=== PATIENT | female | born 1990 | race African-American/Black ===

== ENCOUNTER → 2016-05-08 | Emergency (ER) | payer OTHER ==
[~2016-05-08] MED LIST: METOCLOPRAMIDE HCL INJECTION 10 MG/2 ML VIAL IVPUSH ONE; METOCLOPRAMIDE HCL INJECTION 10 MG/2 ML VIAL ONE; SODIUM CHLORIDE 1,000 ML IV STA
[2016-05-08 21:16] VITALS: BP 137/87; PULSE 110; TEMP 100; BMI 51.7
--- NOTE | 2016-05-08 21:53 | PDOC ---
History of Present Illness - General Chief Complaint: Nausea/Vomiting Stated Complaint: NAUSEA,VOMITING,DIARRHEA,HEADACHE Time Seen by Provider: 05/08/16 21:18 History Source: Patient Exam Limitations: No Limitations - History of Present Illness Travel History: No Past History - Travel Traveled outside of the country in the last 30 days: No Close contact w/someone who was outside of country & ill: No - Past Medical History Allergies/Adverse Reactions: Allergies Allergy/AdvReac Type Severity Reaction Status Date / Time No Known Allergies Allergy Verified 05/08/16 21:13 Home Medications: Ambulatory Orders Metformin HCl [Glucophage] 500 mg PO BID 05/08/16 Diabetes: Yes Seizures: Yes (nocturnal) Other medical history: eczema, arthritis - Psycho/Social/Smoking Cessation Hx Anxiety: No Suicidal Ideation: No Smoking History: Never smoked Have you smoked in the past 12 months: Yes Number of Cigarettes Smoked Daily: 1 Hx Alcohol Use: No Drug/Substance Use Hx: No Substance Use Type: None Abd/GI Specific PMHX - Complaint Specific PMHX Colitis: No Diverticulitis: No Gall Bladder Disease: No GERD: No Review of Systems - Review of Systems Able to Perform ROS?: Yes Comments:: 05/08/16 23:23 CONSTITUTIONAL: Absent: fever, chills, diaphoresis, generalized weakness, malaise, loss of appetite HEENT: Absent: rhinorrhea, nasal congestion, throat pain, throat swelling, difficulty swallowing, mouth swelling, ear pain, eye pain, visual Changes CARDIOVASCULAR: Absent: chest pain, loss of consciousness, palpitations, irregular heart rate, peripheral edema RESPIRATORY: Absent: cough, shortness of breath, dyspnea with exertion, orthopnea, wheezing, stridor, hemoptysis GASTROINTESTINAL: +nausea, vomiting, diarrhea, (non bilious/non bloody) Absent: abdominal pain, abdominal distension, constipation, melena, hematochezia GENITOURINARY: Absent: dysuria, frequency, urgency, hesitancy, hematuria, flank pain, genital pain MUSCULOSKELETAL: Absent: myalgia, arthralgia, joint swelling SKIN: Absent: rash, itching, pallor HEMATOLOGIC/IMMUNOLOGIC: Absent: easy bleeding, easy bruising, lymphadenopathy, frequent infections ENDOCRINE: Absent: unexplained weight gain, unexplained weight loss, heat intolerance, cold intolerance NEUROLOGIC: Absent: headache, focal weakness or paresthesias, dizziness, unsteady gait, seizure, mental status changes, bladder or bowel incontinence PSYCHIATRIC: Absent: anxiety, depression, suicidal or homicidal ideation, hallucinations. Is the patient limited Cong[place] proficient: No *Physical Exam - Vital Signs Last Vital Signs Temp Pulse Resp BP Pulse Ox 100 F H 110 H 18 137/87 98 05/08/16 21:14 05/08/16 21:14 05/08/16 21:14 05/08/16 21:14 05/08/16 21:14 - Physical Exam Comments: 05/08/16 23:23 GENERAL: Well developed, well nourished. Awake and alert. No acute distress. HEENT: Normocephalic, atraumatic. PERRLA, EOMI. No conjunctival pallor. Sclera are non- icteric. Moist mucous membranes. Oropharynx is clear. NECK: Supple. Full ROM. No JVD. Carotid pulses 2+ and symmetric, without bruits. No thyromegaly. No lymphadenopathy. CARDIOVASCULAR: Regular rate and rhythm. No murmurs, rubs, or gallops. Distal pulses are 2+ and symmetric. PULMONARY: No evidence of respiratory distress. Lungs clear to auscultation bilaterally. No wheezing, rales or rhonchi. ABDOMINAL: Soft. Non-tender. Non-distended. No rebound or guarding. No organomegaly. Normoactive bowel sounds. MUSCULOSKELETAL Normal range of motion at all joints. No bony deformities or tenderness. No CVA tenderness. EXTREMITIES: No cyanosis. No clubbing. No edema. No calf tenderness. SKIN: Warm and dry. Normal capillary refill. No rashes. No jaundice. NEUROLOGICAL: Alert, awake, appropriate. Cranial nerves 2-12 intact. No deficits to light touch and temperature in face, upper extremities and lower extremities. No motor deficits in the in face, upper extremities and lower extremities. Normoreflexic in the upper and lower extremities. Normal speech. Toes are down- going bilaterally. Gait is normal without ataxia. PSYCHIATRIC: Cooperative. Good eye contact. Appropriate mood and affect. ED Treatment Course - LABORATORY CBC & Chemistry Diagram: 05/08/16 22:00 05/08/16 22:00 Progress Note - Progress Note Progress Note: 25-year-old female presents to the emergency department complaining of nausea/ vomiting and diarrhea as of last evening. Patient states she vomited once last evening and had 3 bouts of diarrhea today that were nonbilious and nonbloody. Patient states she had a hamburger that wasn't cooked through yesterday and felt nauseous. She denies any abdominal pains, urinary symptoms, chest pain, shortness of breath, fever/chills. *DC/Admit/Observation/Transfer Diagnosis at time of Disposition: Nausea & vomiting Qualifiers: Vomiting type: unspecified Vomiting Intractability: non-intractable Qualified Code(s): R11.2 - Nausea with vomiting, unspecified - Discharge Dispostion Disposition: HOME Condition at time of disposition: Fair - Referrals Referrals: Yovanny Farris MD [Primary Care Provider] - - Patient Instructions Printed Discharge Instructions: DI for Nausea -- Adult, DI for Vomiting -- Adult Additional Instructions: Rest Increase fluids Follow up with your physician Return to the ER for severe/persistent/worsening symptoms
[2016-05-08 22:13] LABS: BASOPHIL 0.5 % (0-2.0); EOSINOPHIL 0.8 % (0-4.5); MCHC 31.3 g/dl (32.0-36.0); MEAN CELL VOLUME 73.4 fl (80-96); MEAN PLT VOLUME 7.9 fl (7.5-11.1); NEUTROPHILS 72.4 % (42.8-82.8); PLATELET COUNT 349 K/MM3 (134-434); RDW 15.9 % (11.6-15.6)
[2016-05-08 22:38] LABS: ALBUMIN 3.6 g/dl (3.4-5.0); ANION GAP 7 (8-16); CALCIUM 8.6 mg/dL (8.5-10.1); CO2 28 mmol/L (21-32); CREATININE 0.7 mg/dL (0.55-1.02); GLUCOSE,RANDOM 140 mg/dL (74-106); SGOT/AST 33 U/L (15-37); SGPT/ALT 56 U/L (12-78); TOT PROT 7.6 g/dl (6.4-8.2)
[2016-05-08 22:42] LABS: ALK PHOS 103 U/L (45-117); BILIRUBIN,TOTAL 0.3 mg/dL (0.2-1.0)
== END | disposition home or self-care (01) ==
LOC: JER 20:46
PROC: 3E033GC Introduction of Other Therapeutic Substance into Peripheral Vein, Percutaneous Approach (ICD-10-PCS; principal; 2016-05-08)
DX: R11.2 Nausea with vomiting, unspecified (principal); Z86.69 Personal history of other diseases of the nervous system and sense organs; E11.9 Type 2 diabetes mellitus without complications; Z79.84 Long term (current) use of oral hypoglycemic drugs
CPT/HCPCS: 36415; 80053; 85025; 96374; 99283-25

== ENCOUNTER 2017-05-15 15:00 | Emergency (ER) | payer OTHER ==
[2017-05-15 15:06] VITALS: BP 130/70; PULSE 121; TEMP 102.8; BMI 48.5
[2017-05-15] MEDS ORDERED: IBUPROFEN 600 MG TABLET (FP) PO ONE (16:28)
--- NOTE | 2017-05-15 16:38 | PDOC ---
History of Present Illness - General Chief Complaint: Respiratory Stated Complaint: FEVER, HEADACHES Time Seen by Provider: 05/15/17 16:23 History Source: Patient Exam Limitations: No Limitations - History of Present Illness Initial Comments: 05/15/17 16:34 Patient came for evaluation of acute onset of cough, ear and throat pain, chills , fevers and runny nose last night. States Tmax 104 at home last night. been using TheraFlu for fevers and pain Timing/Duration: reports: getting worse Severity: reports: mild, moderate Associated Symptoms: reports: chest pain/soreness, cough, earache, facial pain, fever/chills, nasal congestion, nasal drainage, shortness of breath, sore throat Past History - Travel Traveled outside of the country in the last 30 days: No Close contact w/someone who was outside of country & ill: No - Past Medical History Allergies/Adverse Reactions: Allergies Allergy/AdvReac Type Severity Reaction Status Date / Time No Known Allergies Allergy Verified 05/15/17 15:06 Home Medications: Ambulatory Orders Metformin HCl [Glucophage] 500 mg PO BID 05/08/16 Ibuprofen 600 mg PO Q6H PRN #30 tablet 05/15/17 Oseltamivir Phosphate [Tamiflu -] 75 mg PO BID #10 capsule 05/15/17 COPD: No Diabetes: Yes Seizures: Yes (nocturnal) - Suicide/Smoking/Psychosocial Hx Smoking History: Never smoked Have you smoked in the past 12 months: Yes Number of Cigarettes Smoked Daily: 1 Hx Alcohol Use: No Drug/Substance Use Hx: No Substance Use Type: None Review of Systems - Review of Systems Able to Perform ROS?: Yes Is the patient limited [place] proficient: Yes Constitutional: Yes: Symptoms Reported HEENTM: Yes: Symptoms Reported, See HPI, Nose Congestion Respiratory: Yes: Symptoms reported, See HPI, Cough, Wheezing Musculoskeletal: Yes: Symptoms Reported, See HPI, Joint Pain, Muscle Pain Integumentary: Yes: See HPI All Other Systems: Reviewed and Negative *Physical Exam - Vital Signs Last Vital Signs Temp Pulse Resp BP Pulse Ox 102.8 F H 121 H 20 130/70 05/15/17 15:03 05/15/17 15:03 05/15/17 15:03 05/15/17 15:03 - Physical Exam Comments: 05/15/17 16:35 GENERAL: [The child is awake, alert, and appropriately interactive.] EYES: [The pupils are equal, round, and reactive to light, with clear, conjunctiva.but glassy] NOSE: [The nose with clear drainage EARS: [The ear canals and tympanic membranes are congested but landmarks easily visualed ] THROAT: [The oropharynx is clear with erythema, no exudates. The mucous membranes are moist.] NECK: [The neck is supple with mildly tender adenopathy, no menigemous] CHEST: [The lungs are coarse but clear without crackles, or wheezes.] HEART: [Heart is regular rhythm, with normal S1 and S2, no murmurs.] ABDOMEN: [The abdomen is soft and nontender with normal bowel sounds. There is no organomegaly and no mass. There is no guarding or rebound.] EXTREMITIES: [Extremities are normal.] NEURO: [Behavior is normal for age.cranky but easily,m Tone is normal.] SKIN: [Skin is unremarkable without rash or swelling. There is no bruising, and there are no other signs of injury.] General Appearance: Yes: Nourished, Appropriately Dressed, Apparent Distress, Moderate Distress, Severe Distress HEENT: positive: Paco SCOTT Normal Progress Note - Progress Note Progress Note: Respiratory infection, probable influenza. We'll treat with Tamiflu *DC/Admit/Observation/Transfer Diagnosis at time of Disposition: Influenzal acute upper respiratory infection - Discharge Dispostion Disposition: HOME Condition at time of disposition: Stable Admit: No - Prescriptions Prescriptions: Ibuprofen 600 mg PO Q6H PRN #30 tablet PRN Reason: Pain Oseltamivir Phosphate [Tamiflu -] 75 mg PO BID #10 capsule - Referrals Referrals: Yovanny Farris MD [Primary Care Provider] - - Patient Instructions Printed Discharge Instructions: DI for Influenza -- Adult Additional Instructions: Rest, drink lots of fluids: Teas, water, soups, Pedialyte Saltwater gargles Steamy showers/seem to face break up mucus Old-fashioned treatments help! Avoid contact with others until fevers and cough resolved as this is very contagious Lots of handwashing and good hygiene Continue [id number] medications for symptomatic relief Tylenol or Motrin for fever and pain Take all of Tamiflu as directed: 1 tab every 12 hours for 5 days Followup with private physician in one to 2 days as needed or if worsening Return to emergency department for worsened symptoms, fevers, dehydration Influenza takes between 5 and 7 days for resolution To not participate in any activity, work, or school until fevers and cough are gone for at least one day - Post Discharge Activity Forms/Work/School Notes: Back to Work
== END 2017-05-15 16:41 | disposition home or self-care (01) ==
LOC: JERFT 15:00
DX: J11.1 Influenza due to unidentified influenza virus with other respiratory manifestations (principal); E11.9 Type 2 diabetes mellitus without complications; Z79.84 Long term (current) use of oral hypoglycemic drugs
CPT/HCPCS: 99281-25

== ENCOUNTER 2017-07-20 14:59 | Observation (INO) | payer OTHER ==
[2017-07-20] MEDS ORDERED: ONDANSETRON *ODT* 4 MG TABLET SL ONE (15:13)
--- NOTE | 2017-07-20 15:13 | PDOC ---
Rapid Medical Evaluation Time Seen by Provider: 07/20/17 15:10 Medical Evaluation: Allergies Allergy/AdvReac Type Severity Reaction Status Date / Time No Known Allergies Allergy Verified 05/15/17 15:06 07/20/17 15:10 I have performed a brief in-person evaluation of this patient. The patient presents with a chief complaint of: abdominal pain x 3 days, burning /cramping/stabbing, 30 episodes since tuesday, no diarrhea, +fever yesterady Pertinent physical exam findings: well appearing I have ordered the following: labs, zofran The patient will proceed to the ED for further evaluation. Discharge Disposition - Diagnosis Abdominal pain - Referrals - Patient Instructions - Post Discharge Activity
[2017-07-20 15:14] VITALS: BMI 48.5
--- NOTE | 2017-07-20 16:33 | PDOC ---
History of Present Illness <Juve Kerr - Last Filed: 07/20/17 22:52> <Carlton Hernandez - Last Filed: 07/20/17 22:53> - History of Present Illness Initial Comments: 07/20/17 18:05 The patient is a 26 year old female with a history of DM who presents for evaluation of abdominal pain, nausea, vomiting. The patient reports a 3 day history of worsening epigastric abdominal pain with associated nausea and multiple episodes of non-bilious, non-bloody vomiting prompting her presentation to the ED for evaluation. She describes the pain as intermittent and burning and crampy in nature. She otherwise denies fevers, chills, SOB, chest pain, or changes with urination or bowel movements. <Rickie Stinson - Last Filed: 07/21/17 12:05> - General Chief Complaint: Pain, Acute Stated Complaint: VOMITING Time Seen by Provider: 07/20/17 15:10 Past History <Juve Kerr - Last Filed: 07/20/17 22:52> <Carlton Hernandez - Last Filed: 07/20/17 22:53> - Past Medical History COPD: No Diabetes: Yes Seizures: Yes (nocturnal) - Immunization History Immunization Up to Date: Yes - Suicide/Smoking/Psychosocial Hx Smoking History: Never smoked Have you smoked in the past 12 months: Yes Number of Cigarettes Smoked Daily: 1 Information on smoking cessation initiated: No Hx Alcohol Use: No Drug/Substance Use Hx: No Substance Use Type: None <Rickie Stinson - Last Filed: 07/21/17 12:05> - Past Medical History Allergies/Adverse Reactions: Allergies Allergy/AdvReac Type Severity Reaction Status Date / Time No Known Allergies Allergy Verified 07/20/17 15:14 Home Medications: Ambulatory Orders Metformin HCl [Glucophage] 500 mg PO BID 05/08/16 Review of Systems - Review of Systems Comments:: 07/20/17 18:07 Constitutional: No fevers, chills, fatigue, malaise HEENT: No Rhinorrhea, nasal congestion, visual changes Cardiovascular: No chest pain, syncope, palpitations, lightheadedness Respiratory: No Cough, SOB, Hemoptysis, Gastrointestinal: Abdominal pain, Nausea, Vomiting. No Constipation, Diarrhea, Melena Genitourinary: No Dysuria, Frequency, Urgency, Hesitancy, Hematuria, Flank pain Musculoskeletal: No Myalgia, arthralgia Skin: No rashes, itching, bruising, pallor Neurologic: No Headache, Dizziness, Numbness, Weakness, or Tingling Psychiatric: No Hallucinations. No SI or HI <Rickie Stinson - Last Filed: 07/21/17 12:05> *Physical Exam - Vital Signs Last Vital Signs Temp Pulse Resp BP Pulse Ox 98.2 F 89 16 141/78 100 07/20/17 15:12 07/20/17 15:12 07/20/17 15:12 07/20/17 15:12 07/20/17 15:12 <Juve Kerr - Last Filed: 07/20/17 22:52> - Vital Signs Last Vital Signs Temp Pulse Resp BP Pulse Ox 98.2 F 89 16 141/78 100 07/20/17 15:12 07/20/17 15:12 07/20/17 15:12 07/20/17 15:12 07/20/17 15:12 <Carlton Hernandez - Last Filed: 07/20/17 22:53> - Vital Signs Last Vital Signs Temp Pulse Resp BP Pulse Ox 98.2 F 89 16 141/78 100 07/20/17 15:12 07/20/17 15:12 07/20/17 15:12 07/20/17 15:12 07/20/17 15:12 - Physical Exam Comments: 07/20/17 18:08 General Appearance: Nourished. No Apparent Distress HEENT: EOMI, SONIA. No Pharyngeal Erythema, Tonsillar Exudate, Tonsillar Erythema Neck: No Cervical Lymphadenopathy Respiratory/Chest: Lungs Clear, Normal Breath Sounds. No Crackles, Rales, Rhonchi, Wheezing Cardiovascular: Regular Rhythm, Regular Rate. No Murmur, Gallops, Rubs Gastrointestinal/Abdominal: Normal Bowel Sounds, Soft. Epigastric tenderness to palpation with mild tenderness to deep palpation in the RUQ. No Guarding, Rebound, Musculoskeletal: No CVA Tenderness Extremity: Normal Capillary Refill Integumentary: Normal Color, Dry, Warm Neurologic:Fully Oriented, Alert, Normal Mood/Affect, Normal Response, <ShantellRickie - Last Filed: 07/21/17 12:05> Heart Score/ECG Review #1 ECG reviewed & interpreted by me at: 18:09 General ECG Interpretation: Sinus Rhythm, Normal Rate, Normal Intervals, No acute ischemic changes <ShantellRickie - Last Filed: 07/21/17 12:05> ED Treatment Course - LABORATORY CBC & Chemistry Diagram: 07/20/17 16:41 07/20/17 16:41 - ADDITIONAL ORDERS Additional order review: Laboratory Results 07/20/17 07/20/17 07/20/17 16:55 16:55 16:41 Sodium 140 Potassium 4.0 Chloride 108 H Carbon Dioxide 29 Anion Gap 3 L BUN 7 Creatinine 0.6 Creat Clearance w eGFR > 60 Random Glucose 92 Calcium 8.5 Total Bilirubin 0.1 L D AST 15 ALT 15 Alkaline Phosphatase 68 Creatine Kinase 257 H Creatine Kinase Index 0.3 CK-MB (CK-2) < 1.000 Troponin I < 0.02 Total Protein 7.2 Albumin 3.3 L Lipase Urine Color Red Urine Appearance Cloudy Urine pH 7.0 Ur Specific [place] 1.023 Urine Protein 2+ H Urine Glucose (UA) Negative Urine Ketones Negative Urine Blood 3+ H Urine Nitrite Negative Urine Bilirubin Negative Urine Urobilinogen 2.0 H Ur Leukocyte Esterase Negative Urine WBC (Auto) 134 Urine RBC (Auto) 3758 Ur Epithelial Cells Moderate Urine Bacteria Rare Urine Mucus Many Urine HCG, Qual Negative 07/20/17 16:40 Sodium Potassium Chloride Carbon Dioxide Anion Gap BUN Creatinine Creat Clearance w eGFR Random Glucose Calcium Total Bilirubin AST ALT Alkaline Phosphatase Creatine Kinase Creatine Kinase Index CK-MB (CK-2) Troponin I Total Protein Albumin Lipase 110 Urine Color Urine Appearance Urine pH Ur Specific [place] Urine Protein Urine Glucose (UA) Urine Ketones Urine Blood Urine Nitrite Urine Bilirubin Urine Urobilinogen Ur Leukocyte Esterase Urine WBC (Auto) Urine RBC (Auto) Ur Epithelial Cells Urine Bacteria Urine Mucus Urine HCG, Qual 07/20/17 16:41 RBC 4.77 MCV 73.5 L MCHC 32.4 RDW 17.1 H MPV 8.1 Neutrophils % 61.4 Lymphocytes % 28.9 D Monocytes % 7.9 Eosinophils % 1.1 Basophils % 0.7 - Medications Given in the ED: ED Medications Discontinued Medications Generic Name Dose Route Start Last Admin Trade Name Freq PRN Reason Stop Dose Admin Acetaminophen 1,000 mg 07/20/17 18:55 07/20/17 19:11 Ofirmev Injection - IVPB 07/20/17 18:56 1,000 mg ONCE ONE Administration Al Hydroxide/Mg Hydroxide 30 ml 07/20/17 16:34 07/20/17 17:14 Mylanta Oral Suspension - PO 07/20/17 16:35 30 ml ONCE ONE Administration Famotidine/Sodium Chloride 20 mg in 50 mls @ 100 mls/hr 07/20/17 16:45 17:40 Pepcid 20 Mg Premixed Ivpb - IVPB 07/20/17 17:14 100 mls/hr ONCE ONE Administration Sodium Chloride 1,000 mls @ 1,000 mls/hr 07/20/17 16:34 07/20/17 17:14 Normal Saline - IV 07/20/17 17:33 1,000 mls/hr ASDIR STA Administration Ceftriaxone Sodium 1 gm/ 100 mls @ 200 mls/hr 07/20/17 18:55 07/20/17 21:37 Dextrose IVPB 07/20/17 19:24 Not Given ONCE ONE Ceftriaxone Sodium 1 gm/ 100 mls @ 200 mls/hr 07/20/17 21:00 07/20/17 21:28 Dextrose IVPB 07/20/17 21:29 200 mls/hr ONCE ONE Administration Morphine Sulfate 2 mg 07/20/17 21:13 07/20/17 21:28 Morphine Injection - IVPUSH 07/20/17 21:14 2 mg ONCE ONE Administration Morphine Sulfate 4 mg 07/20/17 21:49 07/20/17 21:56 Morphine Injection - IVPUSH 07/20/17 21:50 4 mg ONCE ONE Administration Ondansetron HCl 4 mg 07/20/17 15:13 07/20/17 17:00 Zofran Odt - SL 07/20/17 15:14 Not Given ONCE ONE Ondansetron HCl 4 mg 07/20/17 16:34 07/20/17 17:15 Zofran Injection IVPUSH 07/20/17 16:35 4 mg ONCE ONE Administration Ondansetron HCl 4 mg 07/20/17 21:39 07/20/17 21:44 Zofran Injection IVPUSH 07/20/17 21:40 4 mg ONCE ONE Administration <Juve Kerr - Last Filed: 07/20/17 22:52> - LABORATORY CBC & Chemistry Diagram: 07/20/17 16:41 07/20/17 16:41 - ADDITIONAL ORDERS Additional order review: Laboratory Results 07/20/17 07/20/17 07/20/17 16:55 16:55 16:41 Sodium 140 Potassium 4.0 Chloride 108 H Carbon Dioxide 29 Anion Gap 3 L BUN 7 Creatinine 0.6 Creat Clearance w eGFR > 60 Random Glucose 92 Calcium 8.5 Total Bilirubin 0.1 L D AST 15 ALT 15 Alkaline Phosphatase 68 Creatine Kinase 257 H Creatine Kinase Index 0.3 CK-MB (CK-2) < 1.000 Troponin I < 0.02 Total Protein 7.2 Albumin 3.3 L Lipase Urine Color Red Urine Appearance Cloudy Urine pH 7.0 Ur Specific [place] 1.023 Urine Protein 2+ H Urine Glucose (UA) Negative Urine Ketones Negative Urine Blood 3+ H Urine Nitrite Negative Urine Bilirubin Negative Urine Urobilinogen 2.0 H Ur Leukocyte Esterase Negative Urine WBC (Auto) 134 Urine RBC (Auto) 3758 Ur Epithelial Cells Moderate Urine Bacteria Rare Urine Mucus Many Urine HCG, Qual Negative 07/20/17 16:40 Sodium Potassium Chloride Carbon Dioxide Anion Gap BUN Creatinine Creat Clearance w eGFR Random Glucose Calcium Total Bilirubin AST ALT Alkaline Phosphatase Creatine Kinase Creatine Kinase Index CK-MB (CK-2) Troponin I Total Protein Albumin Lipase 110 Urine Color Urine Appearance Urine pH Ur Specific [place] Urine Protein Urine Glucose (UA) Urine Ketones Urine Blood Urine Nitrite Urine Bilirubin Urine Urobilinogen Ur Leukocyte Esterase Urine WBC (Auto) Urine RBC (Auto) Ur Epithelial Cells Urine Bacteria Urine Mucus Urine HCG, Qual 07/20/17 16:41 RBC 4.77 MCV 73.5 L MCHC 32.4 RDW 17.1 H MPV 8.1 Neutrophils % 61.4 Lymphocytes % 28.9 D Monocytes % 7.9 Eosinophils % 1.1 Basophils % 0.7 - Medications Given in the ED: ED Medications Discontinued Medications Generic Name Dose Route Start Last Admin Trade Name Freq PRN Reason Stop Dose Admin Acetaminophen 1,000 mg 07/20/17 18:55 07/20/17 19:11 Ofirmev Injection - IVPB 07/20/17 18:56 1,000 mg ONCE ONE Administration Al Hydroxide/Mg Hydroxide 30 ml 07/20/17 16:34 07/20/17 17:14 Mylanta Oral Suspension - PO 07/20/17 16:35 30 ml ONCE ONE Administration Famotidine/Sodium Chloride 20 mg in 50 mls @ 100 mls/hr 07/20/17 16:45 17:40 Pepcid 20 Mg Premixed Ivpb - IVPB 07/20/17 17:14 100 mls/hr ONCE ONE Administration Sodium Chloride 1,000 mls @ 1,000 mls/hr 07/20/17 16:34 07/20/17 17:14 Normal Saline - IV 07/20/17 17:33 1,000 mls/hr ASDIR STA Administration Ceftriaxone Sodium 1 gm/ 100 mls @ 200 mls/hr 07/20/17 18:55 07/20/17 21:37 Dextrose IVPB 07/20/17 19:24 Not Given ONCE ONE Ceftriaxone Sodium 1 gm/ 100 mls @ 200 mls/hr 07/20/17 21:00 07/20/17 21:28 Dextrose IVPB 07/20/17 21:29 200 mls/hr ONCE ONE Administration Morphine Sulfate 2 mg 07/20/17 21:13 07/20/17 21:28 Morphine Injection - IVPUSH 07/20/17 21:14 2 mg ONCE ONE Administration Morphine Sulfate 4 mg 07/20/17 21:49 07/20/17 21:56 Morphine Injection - IVPUSH 07/20/17 21:50 4 mg ONCE ONE Administration Ondansetron HCl 4 mg 07/20/17 15:13 07/20/17 17:00 Zofran Odt - SL 07/20/17 15:14 Not Given ONCE ONE Ondansetron HCl 4 mg 07/20/17 16:34 07/20/17 17:15 Zofran Injection IVPUSH 07/20/17 16:35 4 mg ONCE ONE Administration Ondansetron HCl 4 mg 07/20/17 21:39 07/20/17 21:44 Zofran Injection IVPUSH 07/20/17 21:40 4 mg ONCE ONE Administration <Carlton Hernandez - Last Filed: 07/20/17 22:53> - LABORATORY CBC & Chemistry Diagram: 07/20/17 16:41 07/20/17 16:41 <Rickie Stinson - Last Filed: 07/21/17 12:05> Medical Decision Making - Medical Decision Making 07/20/17 18:09 The patient is a 26 year old female with a history of DM who presents for evaluation of abdominal pain, nausea, vomiting. Differential includes but is not limited to: Peptic Ulcer, Gastritis, Cholecystitis, Pancreatitis, ACS, Infectious, Metabolic derangement. Given the patient's history and physical exam, it is likely her symptoms are due to a gastritis. However, we will obtain a cbc, cmp, lipase, torponin, ekg, gallbladder US to evaluate further for possible etiologies. We will treat with iv fluids, pepcid, zofran, maalox here in the ED in the meantime. We will continue to monitor and reassess. 07/20/17 19:04 CBC, cmp, lipase, troponin are unremarkable. Patient signed out to Dr. Kerr pending Gallbladder US and Reassessment. <Rickie Stinson - Last Filed: 07/21/17 12:05> *DC/Admit/Observation/Transfer - Discharge Dispostion Admit: Yes <Juve Kerr - Last Filed: 07/20/17 22:52> - Discharge Dispostion Admit: Yes <Carlton Hernandez - Last Filed: 07/20/17 22:53> <Rickie Stinson - Last Filed: 07/21/17 12:05> Diagnosis at time of Disposition: Abdominal pain Qualifiers: Abdominal location: epigastric Qualified Code(s): R10.13 - Epigastric pain Intractable vomiting with nausea Qualifiers: Vomiting type: unspecified Qualified Code(s): R11.2 - Nausea with vomiting, unspecified - Discharge Dispostion Condition at time of disposition: Stable
[2017-07-20] MEDS ORDERED: MAG HYDROX/AL HYDROX/SIMETH 30 ML UNIT-DOSE CUP PO ONE (16:34)
[2017-07-20] MEDS ORDERED: ONDANSETRON 4 MG/2 ML VIAL IVPUSH ONE ×2 (16:34→21:39)
[2017-07-20] MEDS ORDERED: SODIUM CHLORIDE 1,000 ML IV STA (16:34)
[2017-07-20] MEDS ORDERED: FAMOTIDINE 20 MG/50 ML IVPB 20 MG/50 ML MG IVPB ONE ×2 (16:45→17:01)
[2017-07-20 16:58] LABS: BASO % 0.7 % (0-2.0); EOS % 1.1 % (0-4.5); HEMOGLOBIN 11.3 GM/dL (10.7-15.3); LYMPH % 28.9 % (8-40); MCH 23.8 pg (25.7-33.7); MCHC 32.4 g/dl (32.0-36.0); MEAN CELL VOLUME 73.5 fl (80-96); MEAN PLT VOLUME 8.1 fl (7.5-11.1); MONO % 7.9 % (3.8-10.2); NEUT % 61.4 % (42.8-82.8); PLATELET COUNT 362 K/MM3 (134-434); RBC 4.77 M/mm3 (3.60-5.2); RDW 17.1 % (11.6-15.6); WHITE BLOOD COUNT 8.8 K/mm3 (4.0-10.0)
[2017-07-20] MEDS ORDERED: MAG HYDROX/AL HYDROX/SIMETH 30 ML UNIT-DOSE CUP ONE (17:00)
[2017-07-20] MEDS ORDERED: ONDANSETRON 4 MG/2 ML VIAL ONE ×2 (17:01→21:41)
[2017-07-20 17:24] LABS: ALBUMIN 3.3 g/dl (3.4-5.0); ANION GAP 3 (8-16); BILIRUBIN,TOTAL 0.1 mg/dL (0.2-1.0); BLOOD UREA NITROGEN 7 mg/dL (7-18); CALCIUM 8.5 mg/dL (8.5-10.1); CHLORIDE 108 mmol/L (98-107); CO2 29 mmol/L (21-32); CREATININE 0.6 mg/dL (0.55-1.02); GLUCOSE,RANDOM 92 mg/dL (74-106); SGOT/AST 15 U/L (15-37); SGPT/ALT 15 U/L (12-78); SODIUM 140 mmol/L (136-145)
[2017-07-20 17:25] LABS: ALK PHOS 68 U/L (45-117); TOT PROT 7.2 g/dl (6.4-8.2)
[2017-07-20 18:03] LABS: URINE APPEARANCE CLOUDY; URINE BILIRUBIN NEGATIVE (<2.0 mg/dL); URINE BLOOD 3+ (NEGATIVE); URINE COLOR RED; URINE GLUCOSE (UA) NEGATIVE (NEGATIVE); URINE KETONE NEGATIVE (NEGATIVE); URINE LEUK ESTERASE NEGATIVE (NEGATIVE); URINE NITRITE NEGATIVE (NEGATIVE)
[2017-07-20 18:05] LABS: HCG,QUALITATIVE URINE NEGATIVE
[2017-07-20 18:07] LABS: URINE PROTEIN 2+ (NEGATIVE)
[2017-07-20 18:14] LABS: EPI CELLS MODERATE /HPF (FEW); URINE BACTERIA RARE /hpf (NONE SEEN); URINE MUCUS MANY
[2017-07-20] MEDS ORDERED: ACETAMINOPHEN 1000 MG/100 ML VIAL (NON FORMULARY) IVPB ONE (18:55)
[2017-07-20] MEDS ORDERED: CEFTRIAXONE 1 GM in DEXTROSE 5%-WATER - 100 ML IVPB ONE ×2 (18:55→21:00)
--- NOTE | 2017-07-20 18:58 | PDOC ---
Attending Attestation - Resident Resident Name: Rickie Stinson - ED Attending Attestation I have performed the following: I have examined & evaluated the patient, The case was reviewed & discussed with the resident, I agree w/resident's findings & plan, Exceptions are as noted - HPI HPI: 07/20/17 18:56 The patient is a 26 year old female, with a significant past medical history of hypertension and diabetes, who presents to the emergency department with abdominal pain for approximately 3 days. The patient reports her pain is localized to epigastrum and is nonradiating in nature. She describes it as a burning/crampy sensation. She reports associated nausea and vomiting (nonbloody/ nonbilious), but denies any diarrhea or constipation. She reports a subjective fever, but denies any chills, cough, headache, or dizziness. She denies any dysuria, hematuria, frequency, or urgency. Patient denies any tobacco, marijuana , or recreational drug use. Pt is currently on her period, denies any abnormal discharge. - Physicial Exam PE: 07/20/17 18:57 "GENERAL: Awake, alert, and fully oriented, in no acute distress. HEAD: No signs of trauma EYES: PERRLA, EOMI, sclera anicteric, conjunctiva clear ENT: Auricles normal inspection, hearing grossly normal, nares patent, oropharynx clear without exudates. Moist mucosa NECK: Nontender, no stepoffs, Normal ROM, supple, no lymphadenopathy, JVD, or masses LUNGS: Breath sounds equal, clear to auscultation bilaterally. No wheezes, and no crackles HEART: Regular rate and rhythm, normal S1 and S2, no murmurs, rubs or gallops ABDOMEN: + epigastric and RUQ tenderness. No guarding, no rebound. No masses EXTREMITIES: Normal range of motion, no edema. No clubbing or cyanosis. No cords, erythema, or tenderness NEUROLOGICAL: Cranial nerves II through XII intact. 5/5 strength and sensation in all extremities, Normal speech, normal gait, normal cerebellar function SKIN: Warm, Dry, normal turgor, no rashes or lesions noted. " - Medical Decision Making 07/20/17 18:57 26 F with epigastric pain + RUQ pain. Will evaluate for acute omar and pancreatitis. Also consider gastritis vs PUD. - Labs, lipase - UA, UPT - RUQ sono - IVF, GI cocktail US negative Pt reassessed - still unable to tolerate PO, will admit obs for intractible abdominal pain and nausea <Carlton Hernandez - Last Filed: 07/22/17 17:39> ED Treatment Course - LABORATORY CBC & Chemistry Diagram: 07/20/17 16:41 07/20/17 16:41 - ADDITIONAL ORDERS Additional order review: Laboratory Results 07/20/17 07/20/17 07/20/17 16:55 16:55 16:41 Sodium 140 Potassium 4.0 Chloride 108 H Carbon Dioxide 29 Anion Gap 3 L BUN 7 Creatinine 0.6 Creat Clearance w eGFR > 60 Random Glucose 92 Calcium 8.5 Total Bilirubin 0.1 L D AST 15 ALT 15 Alkaline Phosphatase 68 Creatine Kinase 257 H Creatine Kinase Index 0.3 CK-MB (CK-2) < 1.000 Troponin I < 0.02 Total Protein 7.2 Albumin 3.3 L Lipase Urine Color Red Urine Appearance Cloudy Urine pH 7.0 Ur Specific [place] 1.023 Urine Protein 2+ H Urine Glucose (UA) Negative Urine Ketones Negative Urine Blood 3+ H Urine Nitrite Negative Urine Bilirubin Negative Urine Urobilinogen 2.0 H Ur Leukocyte Esterase Negative Urine WBC (Auto) 134 Urine RBC (Auto) 3758 Ur Epithelial Cells Moderate Urine Bacteria Rare Urine Mucus Many Urine HCG, Qual Negative 07/20/17 16:40 Sodium Potassium Chloride Carbon Dioxide Anion Gap BUN Creatinine Creat Clearance w eGFR Random Glucose Calcium Total Bilirubin AST ALT Alkaline Phosphatase Creatine Kinase Creatine Kinase Index CK-MB (CK-2) Troponin I Total Protein Albumin Lipase 110 Urine Color Urine Appearance Urine pH Ur Specific [place] Urine Protein Urine Glucose (UA) Urine Ketones Urine Blood Urine Nitrite Urine Bilirubin Urine Urobilinogen Ur Leukocyte Esterase Urine WBC (Auto) Urine RBC (Auto) Ur Epithelial Cells Urine Bacteria Urine Mucus Urine HCG, Qual 07/20/17 16:41 RBC 4.77 MCV 73.5 L MCHC 32.4 RDW 17.1 H MPV 8.1 Neutrophils % 61.4 Lymphocytes % 28.9 D Monocytes % 7.9 Eosinophils % 1.1 Basophils % 0.7 - RADIOLOGY Radiograph Interpretation: 07/20/17 22:23 EXAM: Gallbladder US INTERPRETED BY: Dr. Shafer REVIEWED BY: Dr. Hernandez IMPRESSION: 1. No evidence of cholelithiasis or acute cholecystitis. 2. Hepatomegaly and diffuse fatty infiltration of the liver. Please see above discussion. - Medications Given in the ED: ED Medications Discontinued Medications Generic Name Dose Route Start Last Admin Trade Name Kris PRN Reason Stop Dose Admin Acetaminophen 1,000 mg 07/20/17 18:55 07/20/17 19:11 Ofirmev Injection - IVPB 07/20/17 18:56 1,000 mg ONCE ONE Administration Al Hydroxide/Mg Hydroxide 30 ml 07/20/17 16:34 07/20/17 17:14 Mylanta Oral Suspension - PO 07/20/17 16:35 30 ml ONCE ONE Administration Famotidine/Sodium Chloride 20 mg in 50 mls @ 100 mls/hr 07/20/17 16:45 17:40 Pepcid 20 Mg Premixed Ivpb - IVPB 07/20/17 17:14 100 mls/hr ONCE ONE Administration Sodium Chloride 1,000 mls @ 1,000 mls/hr 07/20/17 16:34 07/20/17 17:14 Normal Saline - IV 07/20/17 17:33 1,000 mls/hr ASDIR STA Administration Ceftriaxone Sodium 1 gm/ 100 mls @ 200 mls/hr 07/20/17 18:55 07/20/17 21:37 Dextrose IVPB 07/20/17 19:24 Not Given ONCE ONE Ceftriaxone Sodium 1 gm/ 100 mls @ 200 mls/hr 07/20/17 21:00 07/20/17 21:28 Dextrose IVPB 07/20/17 21:29 200 mls/hr ONCE ONE Administration Morphine Sulfate 2 mg 07/20/17 21:13 07/20/17 21:28 Morphine Injection - IVPUSH 07/20/17 21:14 2 mg ONCE ONE Administration Morphine Sulfate 4 mg 07/20/17 21:49 07/20/17 21:56 Morphine Injection - IVPUSH 07/20/17 21:50 4 mg ONCE ONE Administration Ondansetron HCl 4 mg 07/20/17 15:13 07/20/17 17:00 Zofran Odt - SL 07/20/17 15:14 Not Given ONCE ONE Ondansetron HCl 4 mg 07/20/17 16:34 07/20/17 17:15 Zofran Injection IVPUSH 07/20/17 16:35 4 mg ONCE ONE Administration Ondansetron HCl 4 mg 07/20/17 21:39 07/20/17 21:44 Zofran Injection IVPUSH 07/20/17 21:40 4 mg ONCE ONE Administration <Luisa Kent - Last Filed: 07/20/17 22:23> - LABORATORY CBC & Chemistry Diagram: 07/20/17 16:41 07/20/17 16:41 <Carlton Hernandez - Last Filed: 07/22/17 17:39> Critical Care Time/[facility] Note - Medical Decision Making Note: 07/20/17 22:24 Documentation prepared by Luisa Kent, acting as certified medical transcriptionist for Carlton Hernandez MD. <Luisa Kent - Last Filed: 07/20/17 22:23>
[2017-07-20] MEDS ORDERED: ACETAMINOPHEN INJECTION 100 ML IVPB ONE (19:01)
--- NOTE | 2017-07-20 19:12 | PDOC ---
*Physical Exam - Vital Signs Last Vital Signs Temp Pulse Resp BP Pulse Ox 98.2 F 89 16 141/78 100 07/20/17 15:12 07/20/17 15:12 07/20/17 15:12 07/20/17 15:12 07/20/17 15:12 - Physical Exam Comments: 07/20/17 19:11 Pt signed to me by Dr. Stinson. 26yo F with some burning/crampy epigastric abdominal pain with associated NB/NB emesis and nausea. Lipase negative. Awaiting GB ED Treatment Course - LABORATORY CBC & Chemistry Diagram: 07/20/17 16:41 07/20/17 16:41 - ADDITIONAL ORDERS Additional order review: Laboratory Results 07/20/17 07/20/17 07/20/17 16:55 16:41 16:40 Sodium 140 Potassium 4.0 Chloride 108 H Carbon Dioxide 29 Anion Gap 3 L BUN 7 Creatinine 0.6 Creat Clearance w eGFR > 60 Random Glucose 92 Calcium 8.5 Total Bilirubin 0.1 L D AST 15 ALT 15 Alkaline Phosphatase 68 Total Protein 7.2 Albumin 3.3 L Lipase 110 Urine Color Red Urine Appearance Cloudy Urine pH 7.0 Ur Specific [place] 1.023 Urine Protein 2+ H Urine Glucose (UA) Negative Urine Ketones Negative Urine Blood 3+ H Urine Nitrite Negative Urine Bilirubin Negative Urine Urobilinogen 2.0 H Ur Leukocyte Esterase Negative Urine WBC (Auto) 134 Urine RBC (Auto) 3758 Ur Epithelial Cells Moderate Urine Bacteria Rare Urine Mucus Many Urine HCG, Qual Negative 07/20/17 16:41 RBC 4.77 MCV 73.5 L MCHC 32.4 RDW 17.1 H MPV 8.1 Neutrophils % 61.4 Lymphocytes % 28.9 D Monocytes % 7.9 Eosinophils % 1.1 Basophils % 0.7 - Medications Given in the ED: ED Medications Discontinued Medications Generic Name Dose Route Start Last Admin Trade Name Freq PRN Reason Stop Dose Admin Al Hydroxide/Mg Hydroxide 30 ml 07/20/17 16:34 07/20/17 17:14 Mylanta Oral Suspension - PO 07/20/17 16:35 30 ml ONCE ONE Administration Famotidine/Sodium Chloride 20 mg in 50 mls @ 100 mls/hr 07/20/17 16:45 17:40 Pepcid 20 Mg Premixed Ivpb - IVPB 07/20/17 17:14 100 mls/hr ONCE ONE Administration Sodium Chloride 1,000 mls @ 1,000 mls/hr 07/20/17 16:34 07/20/17 17:14 Normal Saline - IV 07/20/17 17:33 1,000 mls/hr ASDIR STA Administration Ondansetron HCl 4 mg 07/20/17 15:13 07/20/17 17:00 Zofran Odt - SL 07/20/17 15:14 Not Given ONCE ONE Ondansetron HCl 4 mg 07/20/17 16:34 07/20/17 17:15 Zofran Injection IVPUSH 07/20/17 16:35 4 mg ONCE ONE Administration Medical Decision Making - Medical Decision Making 07/20/17 20:01 US performed; images available and awaiting official report NS @100cc/hr 07/20/17 21:41 US report negative for acute GB pathology Fluid trial was performed with orange juice and pt became more nauseous --Likely admit obs dispo for intractable PO intolerance --Zofran 4mg x1 --Morphine 4mg x1 for abdominal pain 07/20/17 22:[address] Farris on outpatient; will contact --Dr. Fuller on-call; awaiting callback 07/20/17 22:[address] Fuller and okay to admit to observation status *DC/Admit/Observation/Transfer Diagnosis at time of Disposition: Abdominal pain Qualifiers: Abdominal location: epigastric Qualified Code(s): R10.13 - Epigastric pain Intractable vomiting with nausea Qualifiers: Vomiting type: unspecified Qualified Code(s): R11.2 - Nausea with vomiting, unspecified - Discharge Dispostion Condition at time of disposition: Stable Admit: Yes - Referrals - Patient Instructions - Post Discharge Activity
[2017-07-20] MEDS ORDERED: morphine CARPU-JECT 2 MG/1 ML DISP.SYRIN IVPUSH ONE (21:13)
[2017-07-20] MEDS ORDERED: morphine SULFATE 4 MG/ML VIAL ONE (21:14)
[2017-07-20] MEDS ORDERED: CEFTRIAXONE 1 GM/50 ML BAG ONE (21:14)
[2017-07-20] MEDS ORDERED: ONDANSETRON 4 MG/2 ML VIAL IVPUSH PRN (21:39)
[2017-07-20] MEDS ORDERED: morphine CARPU-JECT 4 MG/1 ML DISP.SYRIN IVPUSH ONE (21:49)
[2017-07-20] MEDS ORDERED: MORPHINE SULFATE 10 MG/1 ML *VIAL ONE (21:52)
[2017-07-20] MEDS: SODIUM CHLORIDE 1,000 ML IV SCH (22:09)
[2017-07-21] MEDS ORDERED: ONDANSETRON 4 MG/2 ML VIAL IVPB PRN (05:25)
--- NOTE | 2017-07-21 08:31 | HP ---
Admitting History and Physical - Primary Care Physician PCP: Yovanny Farris - Admission Chief Complaint: intractable nausea,vomiting History of Present Illness: fopr past 4 days intractable nausea, vomiting. 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: Seizure (nocturnal-not on treatment currently) ...LMP: 07/20/17 ...: No Musculoskeletal: Yes: Chronic low back pain Endocrine: Yes: Diabetes Mellitus (was told of borderline DM, was on metformin in past, none taken since last year-forgets) - Past Surgical History Past Surgical History: Yes: Tonsillectomy - Smoking History Smoking history: Never smoked Have you smoked in the past 12 months: Yes Aproximately how many cigarettes per day: 1 - Alcohol/Substance Use Hx Alcohol Use: No History of Substance Use: reports: None - Social History ADL: Independent History of Recent Travel: No Home Medications - Allergies Allergies/Adverse Reactions: Allergies Allergy/AdvReac Type Severity Reaction Status Date / Time No Known Allergies Allergy Verified 07/20/17 15:14 - Home Medications Home Medications: Ambulatory Orders Metformin HCl [Glucophage] 500 mg PO BID 05/08/16 Review of Systems - Review of Systems Constitutional: reports: Fever (once 2 days ago) HENT: reports: No Symptoms Neck: reports: No Symptoms Cardiovascular: reports: No Symptoms Respiratory: reports: No Symptoms Gastrointestinal: reports: Abdominal Pain (epigastric), Nausea, Vomiting (has had one BM two days ago, no diarrhea) Genitourinary: reports: No Symptoms Musculoskeletal: reports: Back Pain Integumentary: reports: No Symptoms Neurological: reports: No Symptoms Endocrine: reports: No Symptoms Psychiatric: reports: No Symptoms Physical Examination Vital Signs: Vital Signs Temperature 98.1 F 07/21/17 00:00 Pulse Rate 74 07/21/17 00:00 Respiratory Rate 18 07/21/17 05:23 Blood Pressure 149/61 07/21/17 00:00 O2 Sat by Pulse Oximetry (%) 98 07/21/17 05:23 Constitutional: Yes: No Distress, Obese Eyes: Yes: Conjunctiva Clear HENT: Yes: Atraumatic, Normocephalic Neck: Yes: Trachea Midline Cardiovascular: Yes: Regular Rate and Rhythm Respiratory: Yes: CTA Bilaterally Gastrointestinal: Yes: Normal Bowel Sounds, Soft, Abdomen, Obese, Tenderness, Epigastrium Extremities: Yes: WNL Edema: No Peripheral Pulses WNL: Yes Neurological: Yes: WNL Labs: CBC, BMP 07/20/17 16:41 07/20/17 16:41 Laboratory Tests 07/20/17 07/20/17 07/20/17 16:40 16:41 16:41 WBC 8.8 RBC 4.77 Hgb 11.3 Hct 35.0 MCV 73.5 L MCH 23.8 L MCHC 32.4 RDW 17.1 H Plt Count 362 MPV 8.1 Neutrophils % 61.4 Lymphocytes % 28.9 D Monocytes % 7.9 Eosinophils % 1.1 Basophils % 0.7 Sodium 140 Potassium 4.0 Chloride 108 H Carbon Dioxide 29 Anion Gap 3 L BUN 7 Creatinine 0.6 Creat Clearance w eGFR > 60 Random Glucose 92 Calcium 8.5 Total Bilirubin 0.1 L D AST 15 ALT 15 Alkaline Phosphatase 68 Creatine Kinase Creatine Kinase Index CK-MB (CK-2) Troponin I Total Protein 7.2 Albumin 3.3 L Lipase 110 Urine Color Urine Appearance Urine pH Ur Specific [place] Urine Protein Urine Glucose (UA) Urine Ketones Urine Blood Urine Nitrite Urine Bilirubin Urine Urobilinogen Ur Leukocyte Esterase Urine WBC (Auto) Urine RBC (Auto) Ur Epithelial Cells Urine Bacteria Urine Mucus Urine HCG, Qual 07/20/17 07/20/17 16:55 16:55 WBC RBC Hgb Hct MCV MCH MCHC RDW Plt Count MPV Neutrophils % Lymphocytes % Monocytes % Eosinophils % Basophils % Sodium Potassium Chloride Carbon Dioxide Anion Gap BUN Creatinine Creat Clearance w eGFR Random Glucose Calcium Total Bilirubin AST ALT Alkaline Phosphatase Creatine Kinase 257 H Creatine Kinase Index 0.3 CK-MB (CK-2) < 1.000 Troponin I < 0.02 Total Protein Albumin Lipase Urine Color Red Urine Appearance Cloudy Urine pH 7.0 Ur Specific [place] 1.023 Urine Protein 2+ H Urine Glucose (UA) Negative Urine Ketones Negative Urine Blood 3+ H Urine Nitrite Negative Urine Bilirubin Negative Urine Urobilinogen 2.0 H Ur Leukocyte Esterase Negative Urine WBC (Auto) 134 Urine RBC (Auto) 3758 Ur Epithelial Cells Moderate Urine Bacteria Rare Urine Mucus Many Urine HCG, Qual Negative Imaging - Results Ultrasound: Report Reviewed Problem List - Problems (1) UTI (urinary tract infection) Code(s): N39.0 - URINARY TRACT INFECTION, SITE NOT SPECIFIED Qualifiers: Urinary tract infection type: acute cystitis Hematuria presence: with hematuria Qualified Code(s): N30.01 - Acute cystitis with hematuria (2) Obesity Code(s): E66.9 - OBESITY, UNSPECIFIED Qualifiers: Obesity classification: adult class 3 (BMI >= 40) Body mass index: BMI 45.0 -49.9 (3) Diabetes Code(s): E11.9 - TYPE 2 DIABETES MELLITUS WITHOUT COMPLICATIONS Qualifiers: Diabetes mellitus type: type 2 Diabetes mellitus parts counterman insulin use: without parts counterman use Diabetes mellitus complication status: without complication Qualified Code(s): E11.9 - Type 2 diabetes mellitus without complications (4) Abdominal pain Code(s): R10.9 - UNSPECIFIED ABDOMINAL PAIN Qualifiers: Abdominal location: epigastric Qualified Code(s): R10.13 - Epigastric pain (5) Intractable vomiting with nausea Code(s): R11.2 - NAUSEA WITH VOMITING, UNSPECIFIED Qualifiers: Vomiting type: unspecified Qualified Code(s): R11.2 - Nausea with vomiting , unspecified Assessment/Plan likely acute gastritis-h/o NSAID use UTI mild PPI fluids CT abd. GI eval for inpt or outp egd npo for now
--- NOTE | 2017-07-21 09:20 | CON.GI ---
Consult Consult Specialty:: GI Referred by:: Dr. Natali Fuller - History of Present Illness Chief Complaint: Nausea, vomiting History of Present Illness: 26F admitted through [facility] ER for evaluation of persistent nausea and vomiting. This started on Tuesday and continued through yesterday. In ER triage vitals revealed T: 98.2 P: 89 BP: 141/78. US revealed fatty liver and failed to reveal cholelithiasis. She received 6mg of morphine and states that prior to the onset of her symptoms she took 1 percocet pill at 2am (not her own prescription medication) for back pain. She denies change in diet, sick contacts prior to the onset of her symptoms, fevers/chills, unintentional weight loss, dysphgia/ odynophagia. In review of the [employer] system she was seen in the [facility] ER 05/22 for URI symptoms/fever and was treated with tamiflu, ibuprofen. She states that she takes ibuprofen intermittently for low back pain and right knee pain. She also had a CT scan of the abdomen and pelvis with IV contrast for " abdominal pain" that was unrevealing aside from a suspected overian dermoid Last vomited yesterday evening after drinking oragen juice. There is no family history of colorectal cancer or other GI malignancy. 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 (nocturnal-not on treatment currently) ...LMP: 07/20/17 ...: No Psych: Yes: Other ("Stress") Musculoskeletal: Yes: Chronic low back pain Endocrine: Yes: Diabetes Mellitus (was told of borderline DM, was on metformin in past, none taken since last year-forgets) - Past Surgical History Past Surgical History: Yes: Tonsillectomy Additional Surgical History: drainage of right breast cyst - Alcohol/Substance Use Hx Alcohol Use: No History of Substance Use: reports: None - Smoking History Smoking history: Current some day smoker Have you smoked in the past 12 months: Yes Aproximately how many cigarettes per day: 1 - Social History Usual Living Arrangement: Alone ADL: Independent Occupation: Unemployed [facility] of : [facility] History of Recent Travel: No Home Medications - Allergies Allergies/Adverse Reactions: Allergies Allergy/AdvReac Type Severity Reaction Status Date / Time No Known Allergies Allergy Verified 07/20/17 15:14 - Home Medications Home Medications: Ambulatory Orders Metformin HCl [Glucophage] 500 mg PO BID 05/08/16 Family Disease History - Family Disease History Family Disease History: Other: Father (Alive: She does not know his med history) , Mother (Alive: healthy), Brother (1, Alive: healthy), Son (None), Daughter ( None) Other Family History: No family history of colorectal ca or other GI malignancy Review of Systems - Review of Systems Constitutional: denies: Unintentional Wgt. Loss Cardiovascular: denies: Chest Pain Respiratory: denies: Cough, SOB Gastrointestinal: reports: Abdominal Pain, Nausea, Vomiting. denies: Constipation, Diarrhea, Rectal Bleeding Physical Exam-GI Vital Signs: Vital Signs Temperature 98.1 F 07/21/17 00:00 Pulse Rate 74 07/21/17 00:00 Respiratory Rate 18 07/21/17 05:23 Blood Pressure 149/61 07/21/17 00:00 O2 Sat by Pulse Oximetry (%) 98 07/21/17 05:23 Constitutional: Yes: Calm Eyes: No: Sclera Icterus Cardiovascular: Yes: Regular Rate and Rhythm. No: Murmur Respiratory: Yes: CTA Bilaterally Gastrointestinal Inspection: No: Scars ...Auscultate: Yes: Normoactive Bowel Sounds ...Palpate: No: Hepatomegaly, Splenomegaly, Tenderness ...Percussion: Yes: Other (No succussion splash). No: Tympanitic Edema: No (No LE edema) Neurological: Yes: Alert, Oriented Labs: CBC, BMP 07/20/17 16:41 07/20/17 16:41 Hepatic Panel Total Bilirubin 0.1 mg/dL (0.2-1.0) L D 07/20/17 16:41 AST 15 U/L (15-37) 07/20/17 16:41 ALT 15 U/L (12-78) 07/20/17 16:41 Alkaline Phosphatase 68 U/L (45-117) 07/20/17 16:41 Albumin 3.3 g/dl (3.4-5.0) L 07/20/17 16:41 Imaging - Results Ultrasound: Report Reviewed (Fatty Liver, no cholelithiasis) Problem List - Problems (1) Nausea & vomiting Assessment/Plan: No current N/V: ? if related to opiate use prior to admnission w/ transient gastroparesis . Denies illicit drug use otherwise ? gastritis / self limited AGE Plan for now: Trial of clears PPI IV hydration Advised avoidance of opiate analgesia Urine toxicology ordered but not collected yet Discussed EGD with Ms. Obregon, possibly for tomorrow depending on her clinical course. Discussed alternative of UGIS. Discussed potential risks of procedure like bit not limited to bleeding, perforation requiring surgery to repair, infection, sedation medication effects all of which could be potentially life threatening. She has agreed to the procedure. Code(s): R11.2 - NAUSEA WITH VOMITING, UNSPECIFIED Qualifiers: Vomiting type: unspecified Vomiting Intractability: non-intractable Qualified Code(s): R11.2 - Nausea with vomiting, unspecified
[2017-07-21] MEDS: POTASSIUM CHLORIDE 10 MEQ in SODIUM CHLORIDE 0.45% 1,000 ML IVPB SCH ×2 (10:15→19:15)
[2017-07-21] MEDS ORDERED: DEXTROSE 5%-WATER - 50 ML IVPB ONE (10:18)
[2017-07-21] MEDS ORDERED: cefTRIAXone SODIUM 1 GM VIAL ONE (10:18)
[2017-07-21] MEDS: PANTOPRAZOLE 40 MG TABLET (FP) PO SCH (10:22)
[2017-07-21] MEDS: CEFTRIAXONE 1 GM in DEXTROSE 5%-WATER - 50 ML IVPB SCH (10:23)
[2017-07-21] MEDS: ACETAMINOPHEN 325 MG TABLET (FP) PO PRN ×2 (11:07→17:44)
--- NOTE | 2017-07-21 11:24 | EKG ---
Test Reason : Blood Pressure : / mmHG Vent. Rate : 078 BPM Atrial Rate : 078 BPM P-R Int : 178 ms QRS Dur : 084 ms QT Int : 374 ms P-R-T Axes : 046 026 025 degrees QTc Int : 426 ms NORMAL SINUS RHYTHM POSSIBLE LEFT ATRIAL ENLARGEMENT BORDERLINE ECG WHEN COMPARED WITH ECG OF 14-AUG-2014 16:49, NO SIGNIFICANT CHANGE WAS FOUND Confirmed by DONALD HUMPHREY MD ([id number]) on 07/21/2017 11:23:46 AM Referred By: Confirmed By:DONALD HUMPHREY MD
[2017-07-21 14:26] LABS: COCAINE, UR NEGATIVE ng/ml (CUTOFF=300); METHADONE, UR NEGATIVE ng/ml (CUTOFF=300); OPIATES, URI POSITIVE ng/ml (CUTOFF=300); PHENCYCLIDINE,URINE NEGATIVE ng/ml (CUTOFF=25); URINE AMPHETAMINES NEGATIVE ng/ml (CUTOFF=500); URINE BARBITURATES NEGATIVE ng/ml (CUTOFF=200); URINE BENZODIAZEPINES NEGATIVE ng/ml (CUTOFF=200)
[2017-07-21] MEDS ORDERED: MAG HYDROX/AL HYDROX/SIMETH 30 ML UNIT-DOSE CUP PO PRN (18:44)
[2017-07-21] MEDS: SODIUM CHLORIDE 1,000 ML IV SCH (20:29)
[2017-07-22] MEDS ORDERED: cefTRIAXone SODIUM 1 GM VIAL ONE (09:23)
[2017-07-22] MEDS ORDERED: DEXTROSE 5%-WATER - 50 ML IVPB ONE (09:23)
--- NOTE | 2017-07-22 09:29 | PN ---
Progress Note (short form) - Note Progress Note: CT scan reveals question of thickeing of the gastric antrum vs. underdistention. For upper endoscopy for further evaluation today. also discussed with Ms. Obregon yesterday about the finding of fatty liver on US. Discussed potential risks of fatty liver including progression to chrnic liver disease / cirrhosis and the need for weight reduction through meaningful dietary changes and exercise. Also advised avoidance of alcohol. Consideration could be given, if Ms. Obregon was amenable, to refer to a braiatric surgeon to discuss surgical weight loss options. Problem List - Problems (1) Nausea & vomiting Code(s): R11.2 - NAUSEA WITH VOMITING, UNSPECIFIED Qualifiers: Vomiting type: unspecified Vomiting Intractability: non-intractable Qualified Code(s): R11.2 - Nausea with vomiting, unspecified
[2017-07-22] MEDS: CEFTRIAXONE 1 GM in DEXTROSE 5%-WATER - 50 ML IVPB SCH (09:55)
[2017-07-22] MEDS ORDERED: LIDOCAINE HCL/PF 2% SDV 5ML VIAL ONE (11:14)
[2017-07-22] MEDS ORDERED: PROPOFOL 20 ML ONE ×2 (11:15)
[2017-07-22] MEDS: POTASSIUM CHLORIDE 10 MEQ in SODIUM CHLORIDE 0.45% 1,000 ML IVPB SCH ×3 (12:52→21:26)
--- NOTE | 2017-07-22 12:58 | PN ---
Progress Note (short form) - Note Progress Note: EGD complete. Report left in physical chart and to be scanned into [employer] Problem List - Problems (1) Nausea & vomiting Code(s): R11.2 - NAUSEA WITH VOMITING, UNSPECIFIED Qualifiers: Vomiting type: unspecified Vomiting Intractability: non-intractable Qualified Code(s): R11.2 - Nausea with vomiting, unspecified
[2017-07-22] MEDS: PANTOPRAZOLE 40 MG TABLET (FP) PO SCH ×3 (15:47→21:26)
--- NOTE | 2017-07-22 18:12 | DS ---
Physical Examination Vital Signs: Vital Signs Temperature 98.1 F 07/22/17 16:20 Pulse Rate 78 07/22/17 16:20 Respiratory Rate 20 07/22/17 16:20 Blood Pressure 134/70 07/22/17 16:20 O2 Sat by Pulse Oximetry (%) 99 07/22/17 12:17 Constitutional: Yes: No Distress, Calm Eyes: Yes: EOM Intact HENT: Yes: Normocephalic Neck: Yes: Trachea Midline Cardiovascular: Yes: Regular Rate and Rhythm Respiratory: Yes: CTA Bilaterally Gastrointestinal: Yes: Normal Bowel Sounds, Soft Labs: CBC, BMP 07/20/17 16:41 07/20/17 16:41 Discharge Summary Reason For Visit: NAUSEA AND VOMITING ABDOMINAL PAIN Current Active Problems Abdominal pain (Acute) Diabetes (Acute) Intractable vomiting with nausea (Acute) Obesity (Acute) UTI (urinary tract infection) (Acute) Hospital Course: admitted for intractable nausea, vomiting and epigastric pain ct abd pelvis with gastric thickening and dermoid pelvic cyst egd showed antral lcer likely due to NSAID use protonix bid x2 weeks, GI f/up in 2 weeks 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
[2017-07-23] MEDS ORDERED: cefTRIAXone SODIUM 1 GM VIAL ONE (09:26)
[2017-07-23] MEDS ORDERED: DEXTROSE 5%-WATER - 50 ML IVPB ONE (09:27)
[2017-07-23] MEDS: PANTOPRAZOLE 40 MG TABLET (FP) PO SCH (09:30)
[2017-07-23] MEDS: CEFTRIAXONE 1 GM in DEXTROSE 5%-WATER - 50 ML IVPB SCH (09:30)
[2017-07-23] MEDS: SODIUM CHLORIDE 1,000 ML IV SCH (09:31)
--- NOTE | 2017-07-23 10:15 | PN ---
Progress Note (short form) - Note Progress Note: she has mild nausea but no pain she is c/o painful sebacious cyst on her chest wall for months but now it is painful she has no fever vs Vital Signs Period Temp Pulse Resp BP Sys/Ruvalcaba Pulse Ox Last 24 Hr 98.0 F-98.5 F 67-78 17-20 130-148/61-78 99-100 CBC, BMP 07/20/17 16:41 07/20/17 16:41 Heent nad neck supple lungs clear heart no change ext no edema chest wall she has 2 cm painful cyst on chest wall but no cellulites ap gu protonex cyst on her chest wall call surgical eval and will hold discharge for now
--- NOTE | 2017-07-23 10:51 | CONSULT ---
- Consultation REQUESTING PROVIDER: Brenton MERINO CONSULT REQUEST: We have been asked to surgically evaluate this patient for possible infected sebaceous cyst of the anterior chest wall. PCP:Natali Fuller HISTORY OF PRESENT ILLNESS: H/O previously I and D'ed sebaceous cyst of the anterior abdominal wall which was never definitively addressed; now asked to assess prior to patient d/c today. PMHx: PUD,NIDDM PSHx: none Home Medications Medication Instructions Recorded Acetaminophen [Tylenol .Regular 650 mg PO Q4H PRN tablet 07/22/17 Strength -] Pantoprazole Sodium [Protonix -] 40 mg PO BID #60 tablet.ec 07/22/17 Allergies Allergy/AdvReac Type Severity Reaction Status Date / Time No Known Allergies Allergy Verified 07/20/17 15:14 PHYSICAL EXAM: VSS AF GENERAL: Awake, alert, and fully oriented, in no acute distress. ABDOMEN: Soft, nontender, not distended, normoactive bowel sounds, no guarding, no rebound, no masses. No organomegaly. MUSCULOSKELETAL: Normal ROM at all joints. No bony deformities or tenderness. No CVA tenderness. UPPER EXTREMITIES: 2+ pulses, warm, well-perfused. No cyanosis. Cap refill <2 seconds. No peripheral edema. LOWER EXTREMITIES: 2+ pulses, warm, well-perfused. No calf tenderness. No peripheral edema. NEUROLOGICAL: Normal speech, gait not observed. PSYCH: Cooperative. Good eye contact. Appropriate mood and affect. SKIN: Warm, dry, normal turgor, evidence of medial right inframammary fold sebaceous cyst(s) vs.HAS acute on chronic; none in either axilla or groin. Vital Signs Temperature 98.5 F 07/23/17 06:41 Pulse Rate 72 07/23/17 06:41 Respiratory Rate 18 07/23/17 06:41 Blood Pressure 148/78 07/23/17 06:41 O2 Sat by Pulse Oximetry (%) 99 07/23/17 05:00 Lab Results WBC 8.8 K/mm3 (4.0-10.0) 07/20/17 16:41 RBC 4.77 M/mm3 (3.60-5.2) 07/20/17 16:41 Hgb 11.3 GM/dL (10.7-15.3) 07/20/17 16:41 Hct 35.0 % (32.4-45.2) 07/20/17 16:41 MCV 73.5 fl (80-96) L 07/20/17 16:41 MCHC 32.4 g/dl (32.0-36.0) 07/20/17 16:41 RDW 17.1 % (11.6-15.6) H 07/20/17 16:41 Plt Count 362 K/MM3 (134-434) 07/20/17 16:41 Sodium 140 mmol/L (136-145) 07/20/17 16:41 Potassium 4.0 mmol/L (3.5-5.1) 07/20/17 16:41 Chloride 108 mmol/L (98-107) H 07/20/17 16:41 Carbon Dioxide 29 mmol/L (21-32) 07/20/17 16:41 Anion Gap 3 (8-16) L 07/20/17 16:41 BUN 7 mg/dL (7-18) 07/20/17 16:41 Creatinine 0.6 mg/dL (0.55-1.02) 07/20/17 16:41 Random Glucose 92 mg/dL (74-106) 07/20/17 16:41 Calcium 8.5 mg/dL (8.5-10.1) 07/20/17 16:41 IMP: HAS vs. s# sebaceous cysts; not infected PLAN: Suggest office f/u and evaluation for elective excision of the involved area(s); patient is amenable to same; she will f/u in my office after d/c; a/a/ u by the patient. Carlton Colon MD FACS Visit type - Case Type Case Type: ED Admission - Emergency Emergency Visit: Yes ED Registration Date: 07/20/17 Care time: The patient presented to the Emergency Department on the above date and was hospitalized for further evaluation of their emergent condition. - New patient This patient is new to me today: Yes Date on this admission: 07/23/17 - Critical Care Critical Care patient: No
[2017-07-23] MEDS: POTASSIUM CHLORIDE 10 MEQ in SODIUM CHLORIDE 0.45% 1,000 ML IVPB SCH (11:13)
[2017-07-23 11:23] VITALS: BP 122/67; PULSE 76; TEMP 98.2
--- NOTE | 2017-07-25 14:03 | PATH ---
Surgical Pathology Report Patient Name: JILLIAN KENNEDY Med. Rec. #: [id number] /Age/Gender: 1990 (Age: 26) / F Account: [id number] Location: [facility] MED/SURG Taken: 07/22/2017 Received: 07/22/2017 Reported: 07/25/2017 Physicians: Jeffrey Rene M.D. Specimen(s) Received A: BX GASTRIC ULCER B: BX ANGULARIS AND BODY Clinical History Nausea, vomiting, abnormal CT scan Postoperative diagnosis: Gastric ulcer Final Diagnosis A. STOMACH, ULCER, BIOPSY: GASTRIC OXYNTIC MUCOSA WITH MODERATE TO FOCAL MARKED CHRONIC ACTIVE GASTRITIS WITH ASSOCIATED ULCERATION. IMMUNOHISTOCHEMICAL STAIN FOR H. PYLORI IS NEGATIVE. B. STOMACH, ANGULARIS AND BODY, BIOPSY: GASTRIC BODY MUCOSA WITH MILD CHRONIC GASTRITIS. IMMUNOHISTOCHEMICAL STAIN FOR H. PYLORI IS NEGATIVE. Electronically Signed Alicia Mena M.D. Gross Description A. Received in formalin, labeled "biopsy gastric ulcer" are 4 jacques, irregular portions of soft tissue ranging from 0.3-0.4 cm. in greatest dimension. The specimens are submitted in toto in one cassette. B. Received in formalin, labeled "biopsy angularis and body" are 3 jacques, irregular portions of soft tissue ranging from 0.2-0.4 cm. in greatest dimension. The specimens are submitted in toto in one cassette. /07/22/2017 saudi07/22/2017
== END 2017-07-23 11:31 | disposition home or self-care (01) ==
LOC: JER 14:59 → JERBED 22:52 → J8W 07-21 00:16
PROVIDERS: ADMIT Internal Medicine; ATTEND Internal Medicine
PROC: 0DB68ZX Excision of Stomach, Via Natural or Artificial Opening Endoscopic, Diagnostic (ICD-10-PCS; principal; 2017-07-20)
PROC: 3E03329 Introduction of Other Anti-infective into Peripheral Vein, Percutaneous Approach (ICD-10-PCS; 2017-07-20)
PROC: 3E033GC Introduction of Other Therapeutic Substance into Peripheral Vein, Percutaneous Approach (ICD-10-PCS; 2017-07-20)
PROC: 3E033NZ Introduction of Analgesics, Hypnotics, Sedatives into Peripheral Vein, Percutaneous Approach (ICD-10-PCS; 2017-07-20)
PROC: 3E0337Z Introduction of Electrolytic and Water Balance Substance into Peripheral Vein, Percutaneous Approach (ICD-10-PCS; 2017-07-20)
DX: K29.00 Acute gastritis without bleeding (principal); R10.13 Epigastric pain; R11.2 Nausea with vomiting, unspecified; E11.9 Type 2 diabetes mellitus without complications; I10 Essential (primary) hypertension; G47.8 Other sleep disorders; Z79.84 Long term (current) use of oral hypoglycemic drugs; M54.5 Low back pain; G89.29 Other chronic pain; E66.9 Obesity, unspecified; Z68.42 Body mass index [BMI] 45.0-49.9, adult; N30.01 Acute cystitis with hematuria; L72.3 Sebaceous cyst
CPT/HCPCS: 36415; 74176-TC; 76705-TC; 80053; 80307; 81003; 81015; 82550; 82553; 83690; 84484; 84703; 85025; 87086; 88305-TC; 88342-TC; 93005; 93010; 96365; 96367; 96375; 96376; 99284-25; G0378; J0131; J7030

== ENCOUNTER 2020-01-11 16:23 | Emergency (ER) | payer OTHER ==
--- NOTE | 2020-01-11 16:42 | PDOC ---
History of Present Illness - History of Present Illness Initial Comments: 01/11/20 16:42 29F with PMH of seizures (nocturnal stress seizures), DM, HTN, PUD, PCOS, and smoking presents to ED after seizures that occurred today while laying in bed trying to go to sleep. She reports that it was witnessed with arm convulsions, and unsure of LOC. She reports that she had 3 consecutive seizures a few minutes apart. She denies biting her tongue, incontinence, or falling off the bed and hitting her head. Pt reports that she can have a seizure a day, but was concerned after having multiple, which is abnormal. She has been working night shifts recently, so sleep schedule is off. She sometimes misses her doses of lacosamide. She reports residual right 1st toe numbness, which is normal after seizures, denies other sensory changes. No fevers/chills, n/v, abd pain. PMH: as in HPI Allergies: NKDA Tob/Etoh/Rec drugs: smoking, neg x2 PCP: Dr. Farris Neurologist: Dr. Gianluca HANNA GENERAL/CONSTITUTIONAL: No fever or chills. +fatigue CARDIOVASCULAR: No chest pain or shortness of breath GASTROINTESTINAL: No nausea, vomiting, or incontinence. GENITOURINARY: No incontinence. NEUROLOGIC: No headache, vertigo, loss of consciousness, +numbness in right toe. PE GENERAL: AOx3; no apparent distress HEAD: NC/AT HEENT: no lateral tongue laceration CARDIO: RRR, normal S1/S2, no murmurs, rubs, or gallops. LUNGS: No distress, speaks full sentences, CTA bilaterally NEUROLOGICAL: CNII-XII intact. Normal speech. No focal sensorimotor deficits. Cerebellar testing intact. Amilcar Houser, PGY1 Emergency Medicine <Amilcar Houser - Last Filed: 01/11/20 18:58> <Kathy Kasper - Last Filed: 01/12/20 17:55> - General Chief Complaint: Seizure Stated Complaint: SEIZURES Time Seen by Provider: 01/11/20 16:42 Past History - Medical History Diabetes: Yes Seizures: Yes (nocturnal) - Immunization History Immunization Up to Date: Yes - Psycho-Social/Smoking History Smoking History: Never smoked Have you smoked in the past 12 months: Yes Number of Cigarettes Smoked Daily: 1 <Amilcar Houser - Last Filed: 01/11/20 18:58> <KasperKathy - Last Filed: 01/12/20 17:55> - Medical History Allergies/Adverse Reactions: Allergies Allergy/AdvReac Type Severity Reaction Status Date / Time No Known Allergies Allergy Verified 01/11/20 16:44 Home Medications: Ambulatory Orders Acetaminophen [Tylenol .Regular Strength -] 650 mg PO Q4H PRN tablet 07/22/17 Pantoprazole Sodium [Protonix -] 40 mg PO BID #60 tablet.ec 07/22/17 Lacosamide [Vimpat -] 150 mg PO BID 01/11/20 Review of Systems - Review of Systems Able to Perform ROS?: Yes Constitutional: Yes: See HPI, Malaise. No: Fever HEENTM: Yes: See HPI Respiratory: Yes: See HPI. No: Cough, Shortness of Breath Cardiac (ROS): Yes: See HPI. No: Chest Pain, Syncope, Chest Tightness ABD/GI: Yes: See HPI. No: Diarrhea, Vomiting : Yes: See HPI. No: Burning, Dysuria, Frequency Musculoskeletal: Yes: See HPI. No: Back Pain, Joint Pain, Joint Swelling, Muscle Pain, Neck Pain, Joint Stiffness Integumentary: Yes: See HPI. No: Change in Color Neurological: Yes: See HPI, Numbness, Tingling. No: Headache Psychiatric: No: Anxiety, Depression Hematologic/Lymphatic: Yes: See HPI <KasperKathy Humphries - Last Filed: 01/12/20 17:55> *Physical Exam - Vital Signs Last Vital Signs Temp Pulse Resp BP Pulse Ox 98.7 F 86 20 130/69 99 01/11/20 16:41 01/11/20 20:11 01/11/20 20:11 01/11/20 20:11 01/11/20 20:11 - Physical Exam 01/12/20 17:53 PE GENERAL: AOx3; no apparent distress HEAD: NC/AT, EOMI, PERRL HEENT: no lateral tongue laceration Neck: supple, FROM CARDIO: RRR, normal S1/S2, no murmurs, rubs, or gallops. LUNGS: No distress, speaks full sentences, CTA bilaterally Abdomen: soft and nontender, obese NEUROLOGICAL: CNII-XII intact. Normal speech. No focal sensorimotor deficits. Cerebellar testing intact. Skin: WWP, no wounds, no skin discoloration, normal color for ethnicity MSK: DUMONT x4, normal bulk and tone Psych: calm and cooperative <Kathy Kasper - Last Filed: 01/12/20 17:55> ED Treatment Course - LABORATORY CBC & Chemistry Diagram: 01/11/20 17:36 01/11/20 17:36 <Amilcar Houser - Last Filed: 01/11/20 18:58> - LABORATORY CBC & Chemistry Diagram: 01/11/20 17:36 01/11/20 17:36 - ADDITIONAL ORDERS Additional order review: 01/11/20 17:36 RBC 5.61 H MCV 74.0 L MCHC 31.9 L RDW 16.0 H MPV 8.7 Neutrophils % 58.9 Lymphocytes % 33.7 Monocytes % 5.5 Eosinophils % 1.1 Basophils % 0.8 - Medications Given in the ED: ED Medications Discontinued Medications Generic Name Dose Route Start Last Admin Trade Name Kris PRN Reason Stop Dose Admin Ketorolac Tromethamine 60 mg 01/11/20 18:45 01/11/20 18:57 Toradol Injection - IM 01/11/20 18:46 Not Given ONCE ONE Ketorolac Tromethamine 15 mg 01/11/20 18:48 01/11/20 18:57 Toradol Injection - IVPUSH 01/11/20 18:49 15 mg ONCE ONE Administration Sodium Chloride 1,000 ml 01/11/20 17:24 01/11/20 17:43 Normal Saline - IV 01/11/20 17:25 1,000 ml ONCE ONE Administration <Kathy Kasper - Last Filed: 01/12/20 17:55> Medical Decision Making - Medical Decision Making 01/11/20 18:24 29F with hx of seizures p/w 3 consecutive seizures today. On exam, she had residual shaking of right hand, but neuro exam intact. No lateral tongue lac. -> will do basic labs to look for source of provoked seizure. Upreg deferred because patient is sexually active only with female partner. CBC wnl. 01/11/20 18:58 CMP demonstrated hyperglycemia otherwise wnl. <Amilcar Houser - Last Filed: 01/11/20 18:58> Discharge <Amilcar Houser - Last Filed: 01/11/20 18:58> - Discharge Information Problems reviewed: Yes <Kathy Kasper - Last Filed: 01/12/20 17:55> - Discharge Information Clinical Impression/Diagnosis: Seizure Condition: Stable Disposition: HOME - Follow up/Referral Referrals: Yovanny Farris MD [Primary Care Provider] - - Patient Discharge Instructions Patient Printed Discharge Instructions: DI for Seizure Disorder -- Adult Additional Instructions: You were seen in the ER after seizures. Your bloodwork was normal, and your physical exam was normal. Please be sure to follow up with neurology as soon as possible. Resume your seizure medications right away. Return to the ER if you develop weakness, confusion, high fevers, chest pain, difficulty breathing. - Post Discharge Activity
[2020-01-11 16:45] VITALS: TEMP 98.7; BMI 47.9
--- OUTSIDE RECORDS SUMMARY | 2020-01-11 16:50 | XMS ---
:1990 Author Organization [facility] Support Name Relationship Address Phone CHILD Unavailable [address] [phone] [place] [address] RICHARD KENNEDY MOTHER [address] [place] [address] Re-disclosure Warning The records that you are about to access may contain information from federally- assisted alcohol or drug abuse programs. If such information is present, then the following federally mandated warning applies: This information has been disclosed to you from records protected by federal confidentiality rules (42 CFR part 2). The federal rules prohibit you from making any further disclosure of this information unless further disclosure is expressly permitted by the written consent of the person to whom it pertains or as otherwise permitted by 42 CFR part 2. A general authorization for the release of medical or other information is NOT sufficient for this purpose. The Federal rules restrict any use of the information to criminally investigate or prosecute any alcohol or drug abuse patient.The records that you are about to access may contain highly sensitive health information, the redisclosure of which is protected by Article 27-F of the [facility] Public Health law. If you continue you may haveaccess to information: Regarding HIV / AIDS; Provided by facilities licensed or operated by the [facility] Office of Mental Health; or Provided by the [facility] Office for People With Developmental Disabilities. If such information is present, then the following [facility] mandated warning applies: This information has been disclosed to you from confidential records which are protected by state law. State law prohibits you from making any further disclosure of this information without the specific written consent of the person to whom it pertains, or as otherwise permitted by law. Any unauthorized further disclosure in violation of state law may result in a fine or mcfp sentence or both. A general authorization for the release of medical or other information is NOT sufficient authorization for further disclosure. Insurance Providers Payer name Policy type Policy ID Covered Covered alliance party's Policy P aguila / Coverage alliance party ID relationship to Hansen Inf ormation type hansen MEDICAID [id number] SP [id number] SELF PAY 00 Self 00 MEDICAID OP [id number] Self [id number] [facility] [id number] Self [id number] [employer]MARIAH CON
[2020-01-11] MEDS ORDERED: SODIUM CHLORIDE 0.9% 500 ML INFUS.BAG IV ONE (17:24)
--- NOTE | 2020-01-11 17:29 | PDOC ---
Documentation entered by Glo Simon SCRIBE, acting as scribe for Kathy Kasper MD. Kathy Kasper MD: This documentation has been prepared by the Aurora vargas Xhesika, SCRIBE, under my direction and personally reviewed by me in its entirety. I confirm that the documentation accurately reflects all work, treatment, procedures, and medical decision making performed by me. Attending Attestation - Resident Resident Name: Amilcar Houser - ED Attending Attestation I have performed the following: I have examined & evaluated the patient, The case was reviewed & discussed with the resident, I agree w/resident's findings & plan - HPI HPI: 01/11/20 17:02 The patient is a 29 year old female, with a significant past medical history of hypertension,diabetes, and nocturnal stress seizures (diagnosed a coUple years ago, Follows with neurologist at [facility])who presents to the emergency department s/p partial seizure activity. Pt states she had 2 episodes of seizures a few minutes apart. Pt states she was lying down trying to sleep when she endorsed BLE shaking and convulsions. Pt denies hitting her head or tongue biting. Pt reports R toe numbness but denies any other complaints. c/o mild right arm tingling now. no trauma. no head injury or LOC or AMS Denies fever, chills, chest pain, SOB, palpitation, dizziness, weakness, N, V, D, abdominal pain, bladder and bowel problems, leg swelling, No sick contacts or travel. No new changes in medications. Allergies: nkda Past Medical History: See HPI Social history: Lives with family. No tobacco, ETOH or drug use. Meds: as documented in EMR 01/11/20 18:51 - Physicial Exam PE: 01/11/20 18:37 Agree with the resident's HPI and PE as documented in the electronic medical record. NAD, well appearing, EOMI, PERRL, nl conjunctiva, anicteric; neck supple. lungs clear, RRR, abdomen soft nontender. no rebound, guarding. Back nontender. DUMONT x4, no focal neuro deficits. No peripheral edema. normal color for ethnicity, WWP. 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 against resistance SILT in all extrem. speech clear. no nystagmus. 01/11/20 18:52 - Medical Decision Making 01/11/20 17:29 Vital Signs Temp Pulse Resp BP Pulse Ox 98.7 F 93 H 19 136/77 99 01/11/20 16:41 01/11/20 16:41 01/11/20 16:41 01/11/20 16:41 01/11/20 16:41 01/11/20 18:52 vitals reviewed wnl. 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 no sz here no focal neuro deficits. Dr Farris called several times, no answer back and left message as pt is stable, no events, head ache improving after toradol no focal deficits no cp or sob. speech is clear has neurologist to follow up with, c/w vimpat and f/u PMD Dr Farris. return precautions given rest advised, instructed to get enough sleep/food. 01/11/20 19:56 Discharge - Discharge Information Problems reviewed: Yes Clinical Impression/Diagnosis: Seizure Condition: Stable Disposition: HOME - Admission No - Follow up/Referral Referrals: Yovanny Farris MD [Primary Care Provider] - - Patient Discharge Instructions Patient Printed Discharge Instructions: DI for Seizure Disorder -- Adult Additional Instructions: You were seen in the ER after seizures. Your bloodwork was normal, and your physical exam was normal. Please be sure to follow up with neurology as soon as possible. Resume your seizure medications right away. Return to the ER if you develop weakness, confusion, high fevers, chest pain, difficulty breathing. - Post Discharge Activity
[2020-01-11 17:56] LABS: BASO % 0.8 % (0-2.0); EOS % 1.1 % (0-4.5); HEMATOCRIT 41.5 % (32.4-45.2); HEMOGLOBIN 13.2 GM/dL (10.7-15.3); LYMPH % 33.7 % (8-40); MCH 23.6 pg (25.7-33.7); MCHC 31.9 g/dl (32.0-36.0); MEAN PLT VOLUME 8.7 fl (7.5-11.1); MONO % 5.5 % (3.8-10.2); NEUT % 58.9 % (42.8-82.8); PLATELET COUNT 320 K/MM3 (134-434); RBC 5.61 M/mm3 (3.60-5.2)
[2020-01-11 18:36] LABS: ALBUMIN 3.4 g/dl (3.4-5.0); BILIRUBIN,TOTAL 0.2 mg/dL (0.2-1); BLOOD UREA NITROGEN 9.6 mg/dL (7-18); CALCIUM 8.8 mg/dL (8.5-10.1); CREATININE 0.6 mg/dL (0.55-1.3); MAGNESIUM 1.9 mg/dL (1.8-2.4); POTASSIUM 4.4 mmol/L (3.5-5.1); TOT PROT 7.6 g/dl (6.4-8.2)
[2020-01-11] MEDS ORDERED: KETOROLAC TROMETHAMINE 60 MG/2 ML VIAL IM ONE (18:45)
[2020-01-11] MEDS ORDERED: KETOROLAC TROMETHAMINE 30 MG/1 ML VIAL IVPUSH ONE (18:48)
[2020-01-11] MEDS ORDERED: KETOROLAC TROMETHAMINE 60 MG/2 ML VIAL ONE (18:49)
[2020-01-11] MEDS ORDERED: KETOROLAC TROMETHAMINE 15 MG/ML VIAL ONE (18:51)
--- NOTE | 2020-01-11 19:18 | PDOC ---
*Physical Exam - Vital Signs Last Vital Signs Temp Pulse Resp BP Pulse Ox 98.7 F 93 H 19 136/77 99 01/11/20 16:41 01/11/20 16:41 01/11/20 16:41 01/11/20 16:41 01/11/20 16:41 ED Treatment Course - LABORATORY CBC & Chemistry Diagram: 01/11/20 17:36 01/11/20 17:36 - ADDITIONAL ORDERS Additional order review: Laboratory Results 01/11/20 17:36 Sodium 135 L Potassium 4.4 Chloride 103 Carbon Dioxide 26 Anion Gap 6 L BUN 9.6 Creatinine 0.6 Est GFR (CKD-EPI)AfAm 140.77 Est GFR (CKD-EPI)NonAf 121.46 Random Glucose 273 H Calcium 8.8 Magnesium 1.9 Total Bilirubin 0.2 AST 18 ALT 52 Alkaline Phosphatase 124 H Total Protein 7.6 Albumin 3.4 01/11/20 17:36 RBC 5.61 H MCV 74.0 L MCHC 31.9 L RDW 16.0 H MPV 8.7 Neutrophils % 58.9 Lymphocytes % 33.7 Monocytes % 5.5 Eosinophils % 1.1 Basophils % 0.8 - Medications Given in the ED: ED Medications Discontinued Medications Generic Name Dose Route Start Last Admin Trade Name Freq PRN Reason Stop Dose Admin Ketorolac Tromethamine 60 mg 01/11/20 18:45 01/11/20 18:57 Toradol Injection - IM 01/11/20 18:46 Not Given ONCE ONE Ketorolac Tromethamine 15 mg 01/11/20 18:48 01/11/20 18:57 Toradol Injection - IVPUSH 01/11/20 18:49 15 mg ONCE ONE Administration Sodium Chloride 1,000 ml 01/11/20 17:24 01/11/20 17:43 Normal Saline - IV 01/11/20 17:25 1,000 ml ONCE ONE Administration Medical Decision Making - Medical Decision Making 01/11/20 20:02 Signed out received from Dr. Houser. 29F w/hx partial seizures p/w x3 brief partial seizures today, without focal n euro deficit or post-ictal period reporting intermittent AED use. Dispo: Discharge pending callback with Dr. Farris Second call placed @18:45 --- On reassessment, patient feels well with no acute complaints at this time. Multiple attempts made to contact Dr. Farris, patient has established follow up plan with neurology. Plan for discharge at this time with close follow up. Discharge - Discharge Information Problems reviewed: Yes Clinical Impression/Diagnosis: Seizure Condition: Stable Disposition: HOME - Admission No - Follow up/Referral Referrals: Yovanny Farris MD [Primary Care Provider] - - Patient Discharge Instructions Patient Printed Discharge Instructions: DI for Seizure Disorder -- Adult Additional Instructions: You were seen in the ER after seizures. Your bloodwork was normal, and your physical exam was normal. Please be sure to follow up with neurology as soon as possible. Resume your seizure medications right away. Return to the ER if you develop weakness, confusion, high fevers, chest pain, difficulty breathing. - Post Discharge Activity
[2020-01-11 20:12] LABS: URINE APPEARANCE CLOUDY; URINE BILIRUBIN NEGATIVE (NEGATIVE); URINE COLOR YELLOW; URINE GLUCOSE (UA) 3+ (NEGATIVE); URINE KETONE TRACE (NEGATIVE); URINE LEUK ESTERASE NEGATIVE (NEGATIVE); URINE NITRITE NEGATIVE (NEGATIVE); URINE PROTEIN NEGATIVE (NEGATIVE); URINE UROBILINOGEN 0.2 mg/dL (0.2-1.0)
[2020-01-11 20:13] VITALS: BP 130/69; PULSE 86
== END 2020-01-11 20:13 | disposition home or self-care (01) ==
LOC: JER 16:23
PROC: 3E0333Z Introduction of Anti-inflammatory into Peripheral Vein, Percutaneous Approach (ICD-10-PCS; principal; 2020-01-11)
DX: G40.89 Other seizures (principal)
CPT/HCPCS: 36415; 80053; 81003; 83735; 85025; 99284-25

== ENCOUNTER 2021-11-05 16:02 | Emergency (ER) | payer OTHER ==
[2021-11-05 16:15] VITALS: BP 135/89; PULSE 110; RESP 18; TEMP 98.4; BMI 45.6
[2021-11-05] MEDS ORDERED: SODIUM CHLORIDE 1,000 ML IV STA (17:26)
[2021-11-05 18:03] LABS: BASO % 0.8 % (0-2.0); EOS % 0.6 % (0-4.5); HEMOGLOBIN 12.2 GM/dL (10.7-15.3); LYMPH % 21.6 % (8-40); MCH 23.1 pg (25.7-33.7); MCHC 31.4 g/dl (32.0-36.0); MEAN CELL VOLUME 73.7 fl (80-96); MEAN PLT VOLUME 8.1 fl (7.5-11.1); MONO % 7.6 % (3.8-10.2); NEUT % 69.4 % (42.8-82.8); PLATELET COUNT 403 10^3/uL (134-434); RBC 5.29 M/mm3 (3.60-5.2); RDW 16.6 % (11.6-15.6)
[2021-11-05 18:09] LABS: INR 1.15 (0.83-1.09); PROTHROMBIN TIME (PATIENT) 13.2 SEC (9.7-13.0)
[2021-11-05 18:11] LABS: ACTIVATED PTT 39.8 SECONDS (25.2-36.5)
[2021-11-05 18:21] LABS: CHLORIDE 103 mmol/L (98-107); SODIUM 137 mmol/L (136-145)
[2021-11-05 18:23] LABS: ALBUMIN 3.6 g/dl (3.4-5.0); CALCIUM 9.3 mg/dL (8.5-10.1)
[2021-11-05 18:24] LABS: ANION GAP 8 MMOL/L (8-16); BLOOD UREA NITROGEN 7.8 mg/dL (7-18); CO2 25 mmol/L (21-32); GLUCOSE,RANDOM 236 mg/dL (74-106)
[2021-11-05 18:27] LABS: CREATININE 0.7 mg/dL (0.55-1.3); SGOT/AST 16 U/L (15-37); SGPT/ALT 32 U/L (13-61)
[2021-11-05 18:28] LABS: BILIRUBIN,TOTAL 0.4 mg/dL (0.2-1); TOT PROT 8.1 g/dl (6.4-8.2)
[2021-11-05 18:29] LABS: ALK PHOS 88 U/L (45-117)
[2021-11-05] MEDS ORDERED: morphine CARPU-JECT 4 MG/1 ML DISP.SYRIN IVPUSH ONE (19:11)
== END 2021-11-05 20:57 | disposition home or self-care (01) ==
LOC: JER 16:02
PROC: 3E0337Z Introduction of Electrolytic and Water Balance Substance into Peripheral Vein, Percutaneous Approach (ICD-10-PCS; principal; 2021-11-05)
DX: M62.838 Other muscle spasm (principal); R07.1 Chest pain on breathing; J18.9 Pneumonia, unspecified organism
CPT/HCPCS: 36415; 71046-TC-FY; 71275-TC; 74174-TC; 80053; 83735; 84484; 84702; 85025; 85610; 85730; 93005; 93010; 99285-25

== ENCOUNTER 2023-04-16 18:59 | Emergency (ER) | payer OTHER ==
[2023-04-16 19:06] VITALS: BP 96/79; PULSE 90; RESP 18; TEMP 98.9; BMI 44.1
[2023-04-16] MEDS ORDERED: IBUPROFEN 400 MG TABLET (FP) PO ONE ×2 (20:46→20:49)
== END 2023-04-16 21:07 | disposition home or self-care (01) ==
LOC: JERFT 18:59
PROC: 0H9GXZZ Drainage of Left Hand Skin, External Approach (ICD-10-PCS; principal; 2023-04-16)
DX: M79.645 Pain in left finger(s) (principal); L53.9 Erythematous condition, unspecified; R22.32 Localized swelling, mass and lump, left upper limb; L03.012 Cellulitis of left finger
CPT/HCPCS: 99283-25